=== PATIENT | female | born 1940 | race Two or more races ===

== ENCOUNTER 2018-09-09 13:54 | Emergency (ER) | payer BC, MEDICARE, OTHER ==
[~2018-09-09] VITALS: Ht 162.6 cm; Wt 73.5 kg
--- NOTE | 2018-09-09 14:29 | NUR ---
DR TRAMMELL AT BEDSIDE FOR EVAL.
--- NOTE | 2018-09-09 14:40 | NUR ---
IV LINE STARTED BLOOD DRAWN AND SENT TO LAB.
[2018-09-09 14:49] LABS: BASOPHILS # (AUTO) 0.1 /CMM (0.0-0.2); BASOPHILS % (AUTO) 1.1 % (0.0-2.0); EOSINOPHILS % (AUTO) 0.7 % (0.0-6.0); HEMATOCRIT 47 % (33-45); HEMOGLOBIN 16.1 g/dL (11.5-14.8); LYMPHOCYTES # (AUTO) 1.6 /CMM (0.8-4.8); LYMPHOCYTES % (AUTO) 20.8 % (20.0-44.0); MEAN CORPUSCULAR HGB CONC 35 g/dl (31.0-36.0); MEAN CORPUSCULAR VOLUME 93 fL (82-100); MONOCYTES # (AUTO) 0.4 /CMM (0.1-1.30); MONOCYTES % (AUTO) 5.4 % (2.0-12.0); NEUTROPHILS # (AUTO) 5.4 /CMM (1.8-8.9); PLATELET COUNT (AUTO) 217 /CMM (150-450); RED BLOOD CELL COUNT(AUTO) 5.04 MIL/uL (4.0-5.2); WHITE BLOOD COUNT (AUTO) 7.5 K/uL (4.3-11.0)
[2018-09-09 15:02] LABS: CARBON DIOXIDE 25 mmol/L (21-32); CHLORIDE 104 mmol/L (98-107); CREATININE 0.8 mg/dL (0.6-1.3); GLUCOSE 100 mg/dL (74-106); POTASSIUM 4.1 mmol/L (3.5-5.1); SODIUM SERUM 139 mmol/L (136-145); UREA NITROGEN, BLOOD 20 mg/dL (7-18)
[2018-09-09 15:06] LABS: ALANINE AMINOTRANSFERASE 13 U/L (12-78); ALBUMIN 3.4 g/dL (3.4-5.0); ALKALINE PHOSPHATASE 89 U/L (46-116); ASPARTATE AMINOTRANSFERASE 21 U/L (15-37); BILIRUBIN,DIRECT 0.6 mg/dL (0.0-0.2); BILIRUBIN,TOTAL 1.6 mg/dL (0.2-1.0); LIPASE 107 U/L (73-393)
--- NOTE | 2018-09-09 15:40 | NUR ---
STILL UNABLE TO PROVIDE URINE. PROVIDED WILL ORAL FLUIDS. OK PER ERMD.
--- NOTE | 2018-09-09 15:58 | NUR ---
U/S TECH AT BEDSIDE FOR GALLBLADDER ULTRASOUND.
[2018-09-09 17:05] LABS: APPEARANCE,URINE Slightly Cloudy (CLEAR); BILIRUBIN,URINE LARGE (NEGATIVE); BLOOD, URINE Moderate Ery/uL (NEGATIVE); COLOR,URINE Yellow (YELLOW); KETONES,URINE 40 (NEGATIVE); LEUKOCYTE ESTERASE ,URINE Large (NEGATIVE); NITRITE, URINE Negative (NEGATIVE); PH,URINE 5.5 (5.0-8.0); PROTEIN,URINE 30 mg/dl (NEGATIVE); UGLUCOSE Negative (NEGATIVE)
[2018-09-09 17:14] LABS: BACTERIA,URINE Few /HPF (None Seen); SQUAMOUS EPITHELIAL CELL,UR Few /HPF (None Seen); WBC,URINE 21-50 /HPF (0-3)
--- NOTE | 2018-09-09 18:19 | NUR ---
Patient discharged to home in stable condition. Written and verbal after care instructions given. Patient verbalizes understanding of instruction.IV removed. Catheter intact and site benign. Pressure and 4x4 applied to site. No bleeding noted.
[2018-09-09 18:23] VITALS: BP 142/81
== END 2018-09-09 18:25 | disposition home or self-care (01) ==
LOC: ER 13:54
DX: S51.811A Laceration without foreign body of right forearm, initial encounter (principal); S51.011A Laceration without foreign body of right elbow, initial encounter; N39.0 Urinary tract infection, site not specified; R79.89 Other specified abnormal findings of blood chemistry; F03.90 Unspecified dementia, unspecified severity, without behavioral disturbance, psychotic disturbance, mood disturbance, and anxiety; I10 Essential (primary) hypertension; Z95.1 Presence of aortocoronary bypass graft; X58.XXXA Exposure to other specified factors, initial encounter; Y93.89 Activity, other specified; Y92.89 Other specified places as the place of occurrence of the external cause; Y99.8 Other external cause status
CPT/HCPCS: 36415; 71045; 73090; 76705; 80048; 80076; 81001; 83605; 83690; 84484; 85025; 85730; 87040 ×2; 87086; 93005; 99284; A4606; 81000-TC

== ENCOUNTER 2018-11-18 14:48 | Inpatient (IN) | payer BC ==
[~2018-11-18] VITALS: Ht 162.6 cm; Wt 73.5 kg
[2018-11-18 15:23] LABS: ABG OXYGEN SATURATION 98.5 % (92.0-98.5); ABG PH 7.557 (7.350-7.450); ABG PO2 166.1 mmHg (75.0-100.0); AaDO2 67.4 mmHg; COHb 0.3 % (0.5-1.5); MetHb 0.7 % (0.0-1.5); O2Hb 97.5 % (94.0-97.0); SITE, ABG Right Brachial; VENT MODE, BG Nasal Cannula
[2018-11-18] MEDS ORDERED: IV NS 0.9% 500 ML BAG IV ONE (15:30)
[2018-11-18 15:37] LABS: BASOPHILS # (AUTO) 0.1 /CMM (0.0-0.2); BASOPHILS % (AUTO) 0.8 % (0.0-2.0); EOSINOPHILS % (AUTO) 0.2 % (0.0-6.0); HEMATOCRIT 31 % (33-45); HEMOGLOBIN 10.6 g/dL (11.5-14.8); LYMPHOCYTES # (AUTO) 1.3 /CMM (0.8-4.8); LYMPHOCYTES % (AUTO) 13.5 % (20.0-44.0); MEAN CORPUSCULAR HGB CONC 34 g/dl (31.0-36.0); MEAN CORPUSCULAR VOLUME 97 fL (82-100); MONOCYTES # (AUTO) 0.4 /CMM (0.1-1.30); MONOCYTES % (AUTO) 4.6 % (2.0-12.0); NEUTROPHILS % (AUTO) 80.9 % (43.0-81.0); PLATELET COUNT (AUTO) 240 /CMM (150-450); WHITE BLOOD COUNT (AUTO) 9.8 K/uL (4.3-11.0)
[2018-11-18 15:49] LABS: CARBON DIOXIDE 23 mmol/L (21-32); CHLORIDE 106 mmol/L (98-107); CREATININE 1.1 mg/dL (0.6-1.3); GLUCOSE 113 mg/dL (74-106); POTASSIUM 4.6 mmol/L (3.5-5.1); SODIUM SERUM 142 mmol/L (136-145); UREA NITROGEN, BLOOD 12 mg/dL (7-18)
[2018-11-18 16:01] LABS: ALANINE AMINOTRANSFERASE 11 U/L (12-78); ALBUMIN 2.8 g/dL (3.4-5.0); ALKALINE PHOSPHATASE 77 U/L (46-116); ASPARTATE AMINOTRANSFERASE 28 U/L (15-37); B-TYPE NATRIURETIC PEPTIDE 895 PG/ML (0-125); BILIRUBIN,DIRECT 0.1 mg/dL (0.0-0.2); TOTAL PROTEIN, SERUM 5.4 g/dL (6.4-8.2)
--- NOTE | 2018-11-18 16:21 | NUR ---
CALLED DR TYREL YING FROM [facility] ORDER DEPARTMENT SUPERVISOR ([phone]), DR CALZADA SPOKE WITH HIM.
--- NOTE | 2018-11-18 16:26 | NUR ---
MD AWARE OF LACTIC ACID 4.1 BLOOD PRESSURE IMPROVING PT HAS DIARRHEA CLEANED UP WITH LINEN CHANGED.
[2018-11-18] MEDS ORDERED: IOHEXOL-350 100 ML VIAL IV ONE (16:30)
[2018-11-18] MEDS ORDERED: IV NS 0.9% 250 ML IV ONE (16:30)
[2018-11-18] MEDS ORDERED: CT SWABBABLE VALVE TRANS SET 1 EA INFUS.SET MC ONE (16:30)
[2018-11-18] MEDS ORDERED: VANCOMYCIN 1 GM in IV D5W 250 ML IV ONE (17:00)
[2018-11-18] MEDS ORDERED: CEFEPIME 1 GM in IV D5W 50 ML IV ONE (17:00)
[2018-11-18] MEDS ORDERED: IV NS 0.9% 1,000 ML BAG IV ONE (17:00)
--- NOTE | 2018-11-18 18:05 | NUR ---
CALLED FOR BED AND TURNED IN MOVE SHEET
[2018-11-18] MEDS ORDERED: LEVO125T8 PO (18:24)
[2018-11-18] MEDS ORDERED: ASPI-1169 PO (18:24)
[2018-11-18] MEDS ORDERED: CLOP75TA15 PO (18:24)
[2018-11-18] MEDS ORDERED: PRAV20TA4 PO (18:24)
--- NOTE | 2018-11-18 19:22 | NUR ---
RN TO RN REPORT GIVEN RUY HAYES PT ADMITTED ROOM 306-2 PT ADMITTED UNDER MD SCRUGGS.
[2018-11-18] MEDS ORDERED: ONDANSETRON HCL/PF 4 MG/2 ML VIAL IVP PRN (19:30)
[2018-11-18] MEDS ORDERED: MAG HYDROX/AL HYDROX/SIMETH 30 ML UDC PO PRN (19:30)
[2018-11-18] MEDS ORDERED: ZOLPIDEM TARTRATE 5 MG TABLET PO PRN (19:30)
[2018-11-18] MEDS ORDERED: MAGNESIUM HYDROXIDE 30 ML UDC PO PRN (19:30)
[2018-11-18] MEDS ORDERED: Z GUARD REMEDY 2 OZ OINT TP PRN (19:30)
[2018-11-18] MEDS ORDERED: HYDROCODONE/APAP 5/325MG 1 EACH TABLET PO PRN (19:30)
[2018-11-18] MEDS ORDERED: ACETAMINOPHEN 325 MG TABLET PO PRN (19:30)
[2018-11-18 20:00] VITALS: BP 112/49
--- NOTE | 2018-11-18 20:52 | NUR ---
MS/RN RECEIVED PATIENT FROM [facility] AWAKE, ALERT, ORIENTED, NO C/O PAIN, NO DISTRESS NOTED, 1.7 L OF NS NEED TO BE FINISHED HERE PER [place] RN. STOOL FOR C DIFF WAS COLLECTED, OBTAINED ORDER.
[2018-11-18] MEDS: IV NS 0.9% 1,000 ML IV PRN (22:20)
--- NOTE | 2018-11-19 04:30 | NUR ---
MS/RN PATIENT AGREED TO HAVE PHOTOS TAKEN OF THE BRUISES, SCABS AND SOME SKIN TEARLS OF HER SKIN. PATIENT REFUSED IT LAST NIGHT AT ADMISSION.
--- NOTE | 2018-11-19 06:09 | NUR ---
MS/RN PATIENT IS AWAKE AT THIS TIME, COMFORTABLE, NO C/O PAIN, NO DISTRESS NOTED, ALL NEEDS ATTENDED AT THIS TIME, WILL CONTINUE TO MONITOR.
[2018-11-19 06:42] LABS: BASOPHILS # (AUTO) 0.1 /CMM (0.0-0.2); EOSINOPHILS % (AUTO) 0.2 % (0.0-6.0); HEMATOCRIT 28 % (33-45); HEMOGLOBIN 9.8 g/dL (11.5-14.8); LYMPHOCYTES # (AUTO) 1.5 /CMM (0.8-4.8); LYMPHOCYTES % (AUTO) 25.4 % (20.0-44.0); MEAN CORPUSCULAR HGB CONC 35 g/dl (31.0-36.0); MEAN CORPUSCULAR VOLUME 95 fL (82-100); MONOCYTES # (AUTO) 0.3 /CMM (0.1-1.30); MONOCYTES % (AUTO) 4.8 % (2.0-12.0); NEUTROPHILS # (AUTO) 4.1 /CMM (1.8-8.9); NEUTROPHILS % (AUTO) 68.6 % (43.0-81.0); PLATELET COUNT (AUTO) 203 /CMM (150-450); RED BLOOD CELL COUNT(AUTO) 2.98 MIL/uL (4.0-5.2)
[2018-11-19 06:50] LABS: ALANINE AMINOTRANSFERASE 11 U/L (12-78); ALBUMIN 2.6 g/dL (3.4-5.0); ALKALINE PHOSPHATASE 73 U/L (46-116); ASPARTATE AMINOTRANSFERASE 23 U/L (15-37); BILIRUBIN,TOTAL 0.7 mg/dL (0.2-1.0); CALCIUM, SERUM 7.9 mg/dL (8.5-10.1); CARBON DIOXIDE 21 mmol/L (21-32); CHLORIDE 108 mmol/L (98-107); CREATININE 0.8 mg/dL (0.6-1.3); GLUCOSE 89 mg/dL (74-106); MAGNESIUM 1.9 mg/dL (1.8-2.4); PHOSPHORUS 3.7 mg/dL (2.5-4.9); POTASSIUM 2.9 mmol/L (3.5-5.1); SODIUM SERUM 141 mmol/L (136-145); UREA NITROGEN, BLOOD 12 mg/dL (7-18)
[2018-11-19 06:54] LABS: CHOLESTEROL 129 mg/dL (<200); HDL CHOLESTEROL 31 mg/dL (40-60); LDL 83 mg/dL (0-99); TRIGLYCERIDES 69 mg/dL (30-150)
[2018-11-19 08:00] VITALS: BP 72/50
--- NOTE | 2018-11-19 08:00 | NUR ---
MS RN OPENING NOTES Received Patient comfortable and asleep in bed. A/O x 4. VS stable with no acute distress. Breathing even and unlabored on room air with no respiratory distress. No signs and symptoms of pain. Skin intact. 20g PIV on LAC clean, dry, intact and flushing well. IVF NS running at 100ml/hr. Safety precautions in place. Bed locked and set to lowest position. Will continue to monitor.
--- NOTE | 2018-11-19 08:56 | NUR ---
MS RN NOTES Patient pulled out 20g PIV on LAC. Dressing applied. Will continue to monitor.
--- NOTE | 2018-11-19 09:00 | NUR ---
MS RN NOTES Collected and obtained urine specimen via clean catch at this time. Specimen in fridge.
[2018-11-19] MEDS: POTASSIUM CHLORIDE 20 MEQ TAB.PRT.SR PO SCH (09:56)
[2018-11-19 10:00] VITALS: BP 85/51
[2018-11-19 13:45] LABS: APPEARANCE,URINE SL CLOUDY (CLEAR); BILIRUBIN,URINE NEGATIVE (NEGATIVE); BLOOD, URINE TRACE-INTA Ery/uL (NEGATIVE); COLOR,URINE DARK YELLO (YELLOW); KETONES,URINE NEGATIVE (NEGATIVE); LEUKOCYTE ESTERASE ,URINE NEGATIVE (NEGATIVE); NITRITE, URINE NEGATIVE (NEGATIVE); PROTEIN,URINE NEGATIVE (NEGATIVE); UGLUCOSE NEGATIVE (NEGATIVE); UROBILINOGEN,URINE 0.2 EU/dL (0.2)
[2018-11-19 14:18] LABS: BACTERIA,URINE Few /HPF (None Seen); RBC,URINE 0-2 /HPF (0-2); SQUAMOUS EPITHELIAL CELL,UR Few /HPF (None Seen)
--- NOTE | 2018-11-19 15:30 | NUR ---
MS RN NOTES Inserted 20g PIV on RIGHT HAND x 3 attempt. PIV clean, dry, intact and flushing well. IVF NS running at 100ml/hr. Patient tolerated well. Denies pain. Will continue to monitor.
[2018-11-19 16:00] VITALS: BP 106/54
[2018-11-19] MEDS: IV NS 0.9% 1,000 ML IV PRN (19:14)
--- NOTE | 2018-11-19 19:19 | NUR ---
MS RN CLOSING NOTES Patient comfortable and resting in bed with daughter at bedside. A/O x 4. VS stable with no acute distress. Breathing even and unlabored on room air with no respiratory distress. Denies pain. Skin intact. 20g PIV on RIGHT WRIST clean, dry, intact and flushing well. IVF NS running at 100ml/hr. Safety precautions in place. Bed locked and set to lowest position. All needs rendered at this time. Will endorse plan of care to oncoming shift.
--- NOTE | 2018-11-19 19:30 | NUR ---
RN OPEN NOTES RECEIVED PATIENT AWAKE IN BED WITH DAUGHTER AT BESIDE. A/OX4. NO SIGNS OF DISTRESS OR DISCOMFORT. BREATHING EVEN AND UNLABORED. IV ACCESS IN R WRIST WITH NS INFUSING, PATENT AND INTACT, NO SIGNS OF REDNESS OR INFILTRATION. BED IN LOW LOCKED POSITION WITH SIDE RAILS X3. PATIENT ADVISED TO CALL FOR ASSISTANCE. CALL LIGHT WITHIN REACH. WILL CONTINUE TO MONITOR.
[2018-11-19 20:00] VITALS: BP 87/47
[2018-11-20] MEDS: IV NS 0.9% 1,000 ML IV PRN (06:16)
--- NOTE | 2018-11-20 06:41 | NUR ---
RN CLOSING NOTES PATIENT RESTING IN BED, EASILY AROUSABLE. A/OX4. NO SIGNS OF DISTRESS OR DISCOMFORT. BREATHING EVEN AND UNLABORED. IV ACCESS IN LFA WITH NS INFUSING, PATENT AND INTACT, NO SIGNS OF REDNESS OR INFILTRATION. ALL NEEDS MET. NO SIGNIFICANT CHANGES THROUGH THE NIGHT. BED IN LOW LOCKED POSITION WITH SIDE RAILS X3. BED ALARM ON. PATIENT ADVISED TO CALL FOR ASSISTANCE. CALL LIGHT WITHIN REACH. WILL ENDORSE TO AM SHIFT FOR CATHERINE.
[2018-11-20 08:00] VITALS: BP 96/54
--- NOTE | 2018-11-20 08:00 | NUR ---
MS RN OPENING NOTES Received Patient comfortable and resting in bed. A/O x 4 with episodes of forgetfulness. VS stable with no acute distress. Breathing even and unlabored on room air with no respiratory distress. Denies pain. Multiple skin tears on BUE. Per Patient, "I just wanted to scratch the dry stuff". Dry dressing applied. 20g PIV on LEFT FOREARM clean, dry, intact and flushing well. IVF NS running at 100ml/hr. Safety precautions in place. Bed locked and set to lowest position with side rails x [address] Bed alarm in place and operational. Will continue to monitor.
[2018-11-20] MEDS: POTASSIUM CHLORIDE 20 MEQ TAB.PRT.SR PO SCH (08:52)
--- NOTE | 2018-11-20 09:58 | NUR ---
WOUND CARE CONSULT: PT PRESENTS WITH BRUISING, DRY SCABS AND SKIN TEARS, PRESENT ON ADMISSION. PT STATES THAT SHE PICKS AT HER SKIN WHILE SHE IS ASLEEP. PT IS CONTINENT AND INDEPENDENT WITH BED MOBILITY. RECOMMENDATIONS MADE FOR WOUND CARE AND SKIN PROTECTION. DISCUSSED WITH NURSING STAFF. WILL SEE PRN. REEVES IN AGREEMENT WITH PLAN OF CARE. Addendum: 11/20/18 at 0959 by JOANN BARRIOS WNDNU Amended: Links added.
[2018-11-20 10:00] VITALS: BP 94/54
[2018-11-20 16:00] VITALS: BP 91/48
--- NOTE | 2018-11-20 18:47 | NUR ---
[facility] MEDICAL CENTER MANAGER NOTES Patient discharged home at this time. VS stable with no acute distress. Breathing even and unlabored on room air with no acute distress. Denies pain. Skin assessment pictures taken and placed in chart. Patient refuses dressing on multiple skin tears on BUE. Medication reconciliation and discharge orders reviewed and explained to Patient. Patient verbalized understanding. All belongings with Patient. Patient will follow up with primary MD in 2 weeks. Escorted Patient to the central hospital on [facility] for safety. Patient picked up by Kvng briggs .
== END 2018-11-20 18:46 | disposition home or self-care (01) | DRG 392 ==
LOC: ER 14:50 → TELE 19:56 → MED 20:59
PROVIDERS: ADMIT Internal Medicine; ATTEND Internal Medicine
DX: A08.4 Viral intestinal infection, unspecified (principal); I50.32 Chronic diastolic (congestive) heart failure; E87.2 Acidosis; D63.8 Anemia in other chronic diseases classified elsewhere; E03.9 Hypothyroidism, unspecified; E78.5 Hyperlipidemia, unspecified; I11.0 Hypertensive heart disease with heart failure; J44.9 Chronic obstructive pulmonary disease, unspecified; Z95.1 Presence of aortocoronary bypass graft; Z79.02 Long term (current) use of antithrombotics/antiplatelets; Z79.899 Other long term (current) drug therapy; Z79.82 Long term (current) use of aspirin
CPT/HCPCS: 36415; 36600; 71045-TC; 80048-TC; 80053-TC; 80061-TC; 80076-TC; 81000-TC; 83605-TC; 83735-TC; 83880; 84100-TC; 84132-TC; 84443-TC; 84484-TC; 85025-TC; 85730-TC; 87040-TC; 87045-TC; 87081-TC; 87086-TC; G0378; J0692; J3370; J7030; J7050; J7060; Q9967